=== PATIENT | male | born 2000 | race Two or more races ===

== ENCOUNTER 2022-01-14 09:51 | Emergency (ER) | payer OTHER, SELFPAY ==
[2022-01-14 10:11] VITALS: BP 127/83; PULSE 127; RESP 18; TEMP 39.5; O2SAT 99
--- NOTE | 2022-01-14 10:22 | ED.URI ---
HPI - URI/Sore Throat General Chief Complaint: Upper Respiratory Infection Stated Complaint: Bodyaches, Dizziness,SOB Time Seen by Provider: 01/14/22 10:30 Source: patient and RN notes reviewed Mode of arrival: ambulatory Limitations: no limitations History of Present Illness HPI Narrative: 21-year-old male presents with his dad with complaints of body aches, dizziness, shortness of breath, sore throat. Had symptoms last week but states he got better. Yesterday Sore throat, body aches, dizziness and fevers started again. No treatment prior to arrival Patient denies any chest pain. Denies any abdominal pain. Reports trouble swallowing. MD elicited complaint: fever and sore throat Related Data Home Medications Medication Instructions Recorded Confirmed No Home Medications 01/14/22 01/14/22 Allergies Allergy/AdvReac Type Severity Reaction Status Date / Time No Known Allergies Allergy Verified 01/14/22 10:22 Review of Systems Review of Systems: All systems reviewed & are unremarkable except as noted in HPI and below Constitutional: Constitutional: Reports as per HPI, Reports body ache(s), Denies chills, Reports fatigue and Reports fever(s) Eyes: Eyes: Reports no additional eye complaints ENT: Reports as per HPI and Reports dizziness Cardiovascular: Cardiovascular: Reports no additional cardiovascular complaints Respiratory: Respiratory: Reports no additional respiratory complaints Gastrointestinal: Gastrointestinal: Reports no additional gastrointestinal complaints Musculoskeletal: Musculoskeletal: Reports no additional musculoskeletal complaints Integumentary/Breasts: Skin/Breast: Reports system reviewed and no additional complaints, except as docu Neurologic: Reports system reviewed and no additional complaints, except as documented Psychiatric: Psychiatric: Reports no additional psychiatric complaints Allergic/Immunologic: Allergic/Immunologic: Reports no additional allergic/immunologic complaints [facility] Past Medical History Medical History Patient denies medical problems Surgical History Surgical History (Updated 01/14/22 @ 10:56 by Alia Schmidt APRN) No history of previous surgery Social History Social History (Updated 01/14/22 @ 10:56 by Alia Schmidt APRN) Gender identity (if verbalized by the patient): Male Comments At the time of my signature, I reviewed and agree with the nursing past medical, surgical, social, and family history. There is no relevant family history pertinent to the patient complaint. Exam Const: General: no acute distress, alert and ill appearing acutely Nutritional Appearance: well nourished Orientation/consciousness: patient oriented x3 Limitations: no limitations HENMT: Head: normal to inspection Ears: external ears normal, TM's normal bilaterally and EAC's normal General nose exam: Normal external nose present Face and sinus: normal facial exam Mouth: Yes lip normal, Yes tongue normal and Yes moist mucous membranes Throat: abnormal tonsil on the right erythema, exudates and hypertrophy 3+ and on the left erythema, uvula laterally displaced to the left and uvular edema Eyes: General: appearance normal, both eyes and all related structures Conjunctivae: conjunctivae normal Pupils: Equal, round and reactive pupils present Neck: Neck: normal visual inspection, no meningeal signs and lymphadenopathy bilateral submandibular tender Chest: Chest palpation & inspection: normal inspection of the chest Resp: Effort & Inspection: normal respiratory effort and no use of accessory muscles Auscultation: clear to auscultation bilaterally, no crackles, no rales, no rhonchi and no wheezes Cardio: Rate: regular rate Rhythm: regular rhythm Back/Spine/Pelvis: Thoracic/Lumbar Spine: thoracic and lumbar spine normal to inspection, No thoracic spinal tenderness and No lumbar spinal tenderness Skin: General s
[2022-01-14 10:28] VITALS: TEMP 39.5
[2022-01-14] MEDS: ACETAMINOPHEN 500 MG TABLET 1000 MG PO (10:28)
[2022-01-14 10:40] VITALS: PULSE 121; RESP 20; TEMP 39.5; O2SAT 99
== END 2022-01-14 10:40 | disposition short-term general hospital (02) ==
PROVIDERS: Emergency Provider Nurse Practitioner; PCP Nurse Practitioner Family
DX: J02.9 Acute pharyngitis, unspecified (principal); R50.9 Fever, unspecified; Z20.822 Contact with and (suspected) exposure to COVID-19
CPT/HCPCS: 87426; 87804; 99213; A9270; C9803; G0463

== ENCOUNTER 2022-01-14 10:58 | Emergency (ER) | payer OTHER, SELFPAY ==
--- NOTE | ~2022-01-14 | CT_ITS ---
EXAMINATION: CT soft tissue neck w con DATE: 01/14/2022 15:07 INDICATION: Tonsillar abscess, painful swallowing for several days. TECHNIQUE: Computed tomography (CT) of the neck was performed with 75 mL Omnipaque-350 intravenous co ntrast. Automated exposure control and iterative reconstruction technique were employed. The dose-fransico gth product was 547.15 mGy-cm. COMPARISON: None FINDINGS: Enlargement of the bilateral palatine tonsils, right greater than left. No tonsillar fluid collection or rim-enhancing lesion. The thyroid gland is unremarkable. Right submandibular gland enlargement , relative to the left. Symmetric parotid glands There is no cervical lymphadenopathy. There are no masses identified. The superior mediastinum is unremarkable. The airway is unremarkable. Para pharyngeal and pre-glottic fat planes are preserved. Normal carotid and vertebral enhancement. The orbits are unremarkable. Visualized sinuses and mastoid air cells are well aerated. Lungs are cl ear. No significant degenerative change. IMPRESSION: Tonsillar enlargement, much more severe on the right. Mild right submandibular gland enlargement. No tonsillar abscess. Reviewed, dictated and finalized at location K.
[2022-01-14 11:49] VITALS: BP 156/82; PULSE 110; RESP 20; TEMP 36.7; O2SAT 100
[2022-01-14 13:35] LABS: Basophils Absolute Auto 0.1 K/mm3 (0.0-0.1); Basophils Percent Auto 0.4 % (0.2-1.2); Hematocrit 46.2 % (42.0-52.0); Hemoglobin 15.7 g/dL (14.0-18.0); Immature Granulocyte Absolute 0.14 K/mm3 (0.00-0.031); Immature Granulocyte Percent A 0.9 % (0-0.5); Lymphocytes Absolute Auto 1.25 K/mm3 (0.9-3.2); Lymphocytes Percent Auto 7.6 % (18.3-44.2); Mean Corpuscular Hemoglobin 28.4 pg (26-34); Mean Corpuscular Volume 83.5 fl (80-100); Mean Platelet Volume 10.6 fl (7.4-10.4); Monocytes Absolute Auto 1.4 K/mm3 (0.1-0.6); Monocytes Percent Auto 8.7 % (2.6-8.5); Neutrophils Absolute Auto 13.5 K/mm3 (1.3-6.7); Neutrophils Percent Auto 82.4 % (45.5-73.1); Platelet Count Result 189 k/mm3 (150-375); Red Blood Count 5.53 M/mm3 (4.6-6.20); Red Cell Distribution Width 12.9 % (11.5-14.5); White Blood Count 16.4 K/mm3 (4.5-10.0)
[2022-01-14 13:47] LABS: Alanine Aminotransferase 47 U/L (6-50); Albumin Level 5.1 g/dL (3.5-5.1); Alkaline Phosphatase 60 U/L (38-126); Anion Gap 16 mmol/L (8-16); Aspartate Amino Transferase 27 U/L (17-59); Bilirubin,Total 1.2 mg/dL (0.2-1.3); Blood Urea Nitrogen 16 mg/dL (9-20); Calcium 9.6 mg/dL (8.4-10.2); Carbon Dioxide 27 mmol/L (22-30); Chloride 94 mmol/L (98-107); Estimated CRCL calculation 108 ml/min; Estimated Glomerular Filt Rate > 60; Glucose 111 mg/dL (65-110); Potassium 4.1 mmol/L (3.4-5.0); Sodium 137 mmol/L (137-145)
[2022-01-14 14:32] LABS: Lactic Acid Reflex 1.3 mmol/L (0.7-2.0)
[2022-01-14 14:43] VITALS: BP 136/92; PULSE 106; RESP 18; O2SAT 98
[2022-01-14] MEDS: AMPICILLIN SULB 3 GM/NS 100 ML 3 GM/100 ML VIAL IVPB (14:51)
[2022-01-14] MEDS: SODIUM CHLORIDE 0.9% IV 1,000 ML 999 ML IV CONT (14:51)
--- NOTE | 2022-01-14 15:20 | PC.NURSE ---
Assuming care of pt
--- NOTE | 2022-01-14 15:37 | ED.SKABFB ---
HPI - Skin/Abscess/Foreign Bdy General Chief complaint: Skin/Abscess/Foreign Body Stated complaint: tonsil abcess Time Seen by Provider: 01/14/22 14:28 History of Present Illness HPI narrative: 21-year-old male presents the emergency room for evaluation of sore throat for 2 days. Patient was seen at urgent care earlier today and was told to come to the emergency room for a tonsillar abscess. Patient was given ibuprofen. Related Data Allergies Allergy/AdvReac Type Severity Reaction Status Date / Time No Known Allergies Allergy Verified 01/14/22 10:22 Review of Systems Review of Systems: CONSTITUTIONAL: Denies fever, chills, or sweats. EYES: Denies visual changes, redness, or discharge. ENT: Reports sore throat CARDIOVASCULAR: Denies chest pain, palpitations, or edema. RESPIRATORY: Denies cough or dyspnea. GASTROINTESTINAL: Denies abdominal pain, nausea, vomiting, or diarrhea. GENITOURINARY: Denies dysuria or hematuria. SKIN: Denies rash or itching. MUSCULOSKELETAL: Denies back pain, joint pain, or myalgia. NEUROLOGIC: Denies headache, numbness, dizziness, or weakness. PSYCHIATRIC: Denies anxiety or depression. PMFSH Past Medical History Medical History Patient denies medical problems Surgical History Surgical History No history of previous surgery Social History Social History Gender identity (if verbalized by the patient): Male Exam Narrative: GENERAL: Well-appearing, well-nourished, no physical limitations, and in no acute distress. HEAD: Normocephalic, atraumatic. EYES: Conjunctivae normal, PERRLA and EOMI. ENT: Bilateral erythematous tonsillar hypertrophy, right tonsillar columns are +4 NECK: Supple. Cervical lymphadenopathy right greater than left CHEST: Clear to auscultation. No respiratory distress. No wheezes rales or rhonchi. No tenderness. HEART: Regular rate and rhythm. No murmur heard. Normal peripheral pulses. EXTREMITIES: Normal range of motion. No edema. No clubbing or cyanosis SKIN: Warm, dry, no rash. No noted wounds NEURO: No focal deficits. Alert and oriented x3. MAEW. CN's II-XI intact bilaterally, normal gait PSYCH: Cooperative. Normal mood and affect. Course Vital Signs Vital signs: Vital Signs Temperature 36.7 C 01/14/22 11:49 Pulse Rate 110 H 01/14/22 11:49 Respiratory Rate 20 01/14/22 11:49 Blood Pressure 156/82 H 01/14/22 11:49 Pulse Oximetry 100 01/14/22 11:49 Oxygen Delivery Room Air 01/14/22 11:49 Temperature 36.7 C 01/14/22 11:49 Pulse Rate 106 H 01/14/22 14:43 Respiratory Rate 18 01/14/22 14:43 Blood Pressure 136/92 H 01/14/22 14:43 Pulse Oximetry 98 01/14/22 14:43 Oxygen Delivery Room Air 01/14/22 11:49 MDM - Skin/Abscess/Foreign Bdy Lab Data Result diagrams: 01/14/22 13:17 01/14/22 13:17 Labs: Lab Results 01/14/22 01/14/22 01/14/22 Range/Units 13:17 13:17 14:17 WBC 16.4 H (4.5-10.0) K/mm3 RBC 5.53 (4.6-6.20) M/mm3 Hgb 15.7 (14.0-18.0) g/dL Hct 46.2 (42.0-52.0) % MCV 83.5 (80-100) fl MCH 28.4 (26-34) pg MCHC 34.0 (32-36) g/dl RDW 12.9 (11.5-14.5) % Plt Count 189 (150-375) k/mm3 MPV 10.6 H (7.4-10.4) fl Immature Gran % (Auto) 0.9 H (0-0.5) % Neut % (Auto) 82.4 H (45.5-73.1) % Lymph % (Auto) 7.6 L (18.3-44.2) % Dillon % (Auto) 8.7 H (2.6-8.5) % Eos % (Auto) 0.0 (0-4.4) % Baso % (Auto) 0.4 (0.2-1.2) % Lymph # (Auto) 1.25 (0.9-3.2) K/mm3 Dillon # (Auto) 1.4 H (0.1-0.6) K/mm3 Eos # (Auto) 0.0 (0-0.3) K/mm3 Baso # (Auto) 0.1 (0.0-0.1) K/mm3 Abs Immat Gran (auto) 0.14 H (0.00-0.031) K/mm3 Absolute Neuts (auto) 13.5 H (1.3-6.7) K/mm3 Absolute Nucleated RBC 0.0 (0.0-0.012) K/mm3 Nucleated RBC % 0.0 (0.0-0.2) %
== END 2022-01-14 16:12 | disposition home or self-care (01) ==
PROVIDERS: Emergency Medicine; Emergency Provider Nurse Practitioner Family; PCP Nurse Practitioner Family
DX: J03.90 Acute tonsillitis, unspecified (principal)
CPT/HCPCS: 36415; 70491; 80053; 83605; 85025; 87426; 87804; 96365; 99284; A9270; C9803; J0295; J7030; Q9967